=== PATIENT | male | born 1995 | race Caucasian/White ===

== ENCOUNTER 2024-01-10 15:18 | Observation (INO) ==
[2024-01-10 16:22] LABS: ABS Basophils 0.1 10^3/uL (0.0-0.1); ABS Eosinophils 0.1 10^3/uL (0.0-0.5); ABS Lymphocytes 1.8 10^3/uL (1.0-4.8); ABS Monocytes 1.1 10^3/uL (0.0-1.1); ABS Neutrophils 5.4 10^3/uL (1.5-7.6); Eosinophil % 0.9 %; Hematocrit 37.5 % (38-53); Hemoglobin 12.4 g/dL (13.2-16.3); Lymphocyte % 21.7 %; Mean Corpuscular Hemoglobin 27.3 pg (27-33); Mean Corpuscular Hgb Conc 33.1 g/dL (31-36); Mean Corpuscular Volume 82.5 fL (80-97); Mean Platelet Volume 8.7 fL (7.5-11.2); Platelet Count 379 10^3/uL (150-450); Red Blood Count 4.54 10^6/uL (4.06-5.63); Red Cell Distribution Width 12.2 % (12-17); White Blood Count 8.4 10^3/uL (3.6-10.2)
[2024-01-10 16:30] LABS: Urine Appearance Clear; Urine Bilirubin Negative (Negative); Urine Blood Negative (Negative); Urine Color Colorless; Urine Glucose Negative (Negative); Urine Ketones Negative (Negative); Urine Nitrite Negative (Negative); Urine Protein Negative (Negative); Urine Specific Gravity 1.012 (1.002-1.030); Urine Urobilinogen Negative (Negative); Urine pH 5.5 (5.0-8.0)
[2024-01-10 16:48] LABS: C Reactive Protein 62.69 mg/L (<8.01)
[2024-01-10 19:22] LABS: Albumin/Globulin Ratio 1.4 (1-3); Calcium 9.5 mg/dL (8.6-10.3); Creatinine, Serum 0.79 mg/dL (0.67-1.17); Globulin 2.9 g/dL (2-4); Potassium 4.4 mmol/L (3.5-5.0); Total Bilirubin 0.3 mg/dL (0.2-1.0); Total Protein 6.9 g/dL (6.4-8.9); eGFR CKD-EPI 124.1 (>60)
[2024-01-10] MEDS: Iohexol 300 (CONTRAST) 10 ML SDV IV ONE (19:44)
[2024-01-10] MEDS ORDERED: Ondansetron 4 mg VIAL 2 MG/ML 2 ml VIAL IV PRN (21:32)
[2024-01-10] MEDS ORDERED: HYDROmorphone 1 MG/1 ML SYRINGE IV SLOW PU PRN (21:32)
[2024-01-10] MEDS: NS 0.9% 1000 ml BAG 1,000 ML IV SCH (22:41)
[2024-01-11] MEDS: Piperacillin/Tazobac 3.375 BAG 3.375 GM/100 ML BAG IV SCH (02:25)
[2024-01-11] MEDS ORDERED: Bupivacaine 0.25% SDV PF 10 ML VIAL INJ ONE (19:18)
[2024-01-11] MEDS ORDERED: Midazolam 2 mg/2 ml VIAL 1 mg/ml 2 ml VIAL (2 mg) ONE (19:50)
[2024-01-11] MEDS ORDERED: Propofol 10 MG/ML 20 ML BTL ONE (19:50)
[2024-01-11] MEDS ORDERED: fentaNYL 100 mcg/2 ml 50 MCG/ML VIAL ONE (19:50)
[2024-01-11] MEDS ORDERED: Dexamethasone IV 4 MG/ML VIAL 1 ml VIAL ONE (19:50)
[2024-01-11] MEDS ORDERED: Ondansetron 4 mg VIAL 2 MG/ML 2 ml VIAL ONE ×2 (19:50→21:45)
[2024-01-11] MEDS ORDERED: Rocuronium 50 mg VIAL 10 mg/ml 5 ml VIAL (50 mg) ONE (19:51)
[2024-01-11] MEDS ORDERED: Dexmedetomidine 200 mcg/2 ml 2 ml VIAL (200 mcg) ONE (20:28)
[2024-01-11] MEDS ORDERED: HYDROmorphone 0.5 MG/0.5 ML SYRINGE ONE (20:39)
[2024-01-11] MEDS ORDERED: Naloxone 0.4 mg VIAL 0.4 mg/ml 1 ml VIAL IV PRN (21:45)
[2024-01-11] MEDS ORDERED: fentaNYL 100 mcg/2 ml 50 MCG/ML VIAL IV PRN (21:45)
[2024-01-11] MEDS: Ondansetron 4 mg VIAL 2 MG/ML 2 ml VIAL IV PRN (21:50)
[2024-01-11] MEDS ORDERED: Metoclopramide 5 MG/ML VIAL (10 mg) ONE (21:52)
[2024-01-11] MEDS: Metoclopramide 5 MG/ML VIAL (10 mg) IV PRN (21:52)
[2024-01-11] MEDS: oxyCODONE/Acetamin 5/325 mg TAB PO PRN (23:59)
[2024-01-12] MEDS: Calcium Carb (TUMS) 500 mg CHEW TAB PO PRN (02:14)
[2024-01-12 10:48] VITALS: BP 108/74
== END 2024-01-12 14:33 | disposition home or self-care (01) ==
LOC: ED 15:18 → EDHOLD 15:18 → SSU 01-11 00:18
PROVIDERS: ADMIT Surgery; ATTEND Surgery